=== PATIENT | female | born 1950 | race Caucasian/White ===

== ENCOUNTER → 2024-12-10 06:27 | Day surgery (SDC) | payer MEDICARE, OTHER, SELFPAY | LOC: GI 06:27 | PROVIDERS: ATTENDING PHYSICIAN Internal Medicine | DX: R10.13 Epigastric pain (principal); K90.0 Celiac disease; K44.9 Diaphragmatic hernia without obstruction or gangrene; K57.30 Diverticulosis of large intestine without perforation or abscess without bleeding; K29.00 Acute gastritis without bleeding; K57.10 Diverticulosis of small intestine without perforation or abscess without bleeding; K64.9 Unspecified hemorrhoids; K63.89 Other specified diseases of intestine; K62.89 Other specified diseases of anus and rectum; K52.9 Noninfective gastroenteritis and colitis, unspecified; K52.832 Lymphocytic colitis; K29.50 Unspecified chronic gastritis without bleeding | CPT/HCPCS: 45380; 43239; 88305; 88342 ==

== ENCOUNTER → 2024-12-18 08:53 | Outpatient (REF) | payer MEDICARE, OTHER, SELFPAY | LOC: WDC 08:53 | PROVIDERS: ATTENDING PHYSICIAN Obstetrics & Gynecology Gynecology; FAMILY PHYSICIAN Internal Medicine Geriatric Medicine | DX: Z12.31 Encounter for screening mammogram for malignant neoplasm of breast (principal) | CPT/HCPCS: 77063; 77067 ==

== ENCOUNTER → 2025-05-28 10:18 | Outpatient (REF) | payer MEDICARE, OTHER, SELFPAY | LOC: RCS 10:18 | PROVIDERS: ATTENDING PHYSICIAN Internal Medicine Cardiovascular Disease; FAMILY PHYSICIAN Internal Medicine Geriatric Medicine | DX: I51.7 Cardiomegaly (principal) | CPT/HCPCS: 93306 ==